=== PATIENT | female | born 1985 | race Caucasian/White ===

== ENCOUNTER 2016-07-28 12:25 | Emergency (ER) | payer SELFPAY ==
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
[2016-07-28 14:36] VITALS: BP 129/83
== END 2016-07-28 14:37 | disposition home or self-care (01) ==
LOC: ER 12:25
DX: S02.2XXA Fracture of nasal bones, initial encounter for closed fracture (principal); Y04.2XXA Assault by strike against or bumped into by another person, initial encounter; F17.200 Nicotine dependence, unspecified, uncomplicated
CPT/HCPCS: 70160; 99283

== ENCOUNTER 2016-11-26 22:45 | Emergency (ER) | payer SELFPAY ==
--- NOTE | 2016-11-27 00:21 | ER Document Report ---
HPI - HPI Patient complains to provider of: Painful walking Pain Level: 4 Context: Patient is a 31-year-old female that comes emergency department for chief complaint of right foot pain, she states that she stands 5-12 hours for her job and has painful walking on it now. She also states she has pain in her left hip with movement. She denies injuries to either. She has had this intermittently in the past. She states that she has had family members with similar problems and needed surgery for spurring/arthritis. She denies any daily medications. LMP within the past month. - DERM Skin Color: Normal, [place] Past Medical History - General Information source: Patient - Social History Smoking Status: Never Smoker Drug Abuse: None Lives with: Family Family History: None Pulmonary Medical History: Reports: Hx Asthma Renal/ Medical History: Denies: Hx Peritoneal Dialysis Psychiatric Medical History: Reports: Hx Depression Surgical Hx: Negative - Immunizations Immunizations up to date: Yes Hx Diphtheria, Pertussis, Tetanus Vaccination: Yes Vertical Provider Document - INFECTION CONTROL TRAVEL OUTSIDE OF THE [place].S. IN LAST 30 DAYS: No - HEENT HEENT: Atraumatic, Normocephalic - NECK Neck: Normal Inspection - RESPIRATORY Respiratory: Breath Sounds Normal, No Respiratory Distress O2 Sat by Pulse Oximetry: 99 - CARDIOVASCULAR Cardiovascular: Regular Rate, Regular Rhythm - GI/ABDOMEN Gastrointestinal: Abdomen Soft, Abdomen Non-Tender - MUSCULOSKELETAL/EXTREMETIES Musculoskeletal/Extremeties: Tender - Right foot examination is consistent with hallux valgus with tenderness over the first MTP joint, no significant erythema or swelling noted, normal lower extremity exam otherwise. I do not appreciate any particular pain or loss of range of motion with examination of the hip although patient reports pain on walking. Course - Re-evaluation Re-evalutation: X-ray showing hallux valgus with some soft tissue swelling, no other abnormalities, also shows mild hip arthritis. Patient given anti-inflammatory, muscle relaxer, copies of images and reports, will refer to podiatry, will provide with work-release. Discussed treatment plan in detail, discussed return precautions. Patient states understanding and agreement - Vital Signs Vital signs: Temp Pulse Resp BP Pulse Ox 98.1 F 70 18 142/94 H 99 11/26/16 23:10 11/26/16 23:10 11/26/16 23:10 11/26/16 23:10 07/25/17 23:10 - Diagnostic Test Radiology reviewed: Image reviewed, Reports reviewed Discharge - Discharge Clinical Impression: Right foot pain, Left hip pain Condition: Stable Disposition: HOME, SELF-CARE Additional Instructions: Examination and imaging show hallux valgus of the right foot (a bunion). Apply ice to the area, take the anti-inflammatory as directed, follow-up with podiatry referral for additional management. Imaging also shows mild arthritis in the hip. Take the anti-inflammatory and the muscle relaxer as prescribed. Return to emergency department for any concerning or worsening symptoms including severe swelling, redness, fever, or any other concerning symptoms. Prescriptions: Cyclobenzaprine HCl [Flexeril 5 mg Tablet] 1 - 2 tab PO TID PRN #15 tablet PRN Reason: Naproxen 500 mg PO BID #20 tablet Forms: Return to Work Referrals: SOLOMON ZAVALETA DPM [ACTIVE STAFF] - Follow up as needed
--- NOTE | 2016-11-27 02:20 | RADIOLOGY REPORT (SQ) ---
EXAM DESCRIPTION: FOOT RIGHT COMPLETE COMPLETED DATE/TIME: 11/27/2016 1:25 am REASON FOR STUDY: pain in foot, difficult to walk COMPARISON: None. NUMBER OF VIEWS: Three views. TECHNIQUE: AP, lateral and oblique radiographic images acquired of the right foot. LIMITATIONS: Nonweightbearing views. FINDINGS: MINERALIZATION: Normal. BONES: No acute fracture or dislocation. No worrisome bone lesions. Small Achilles tendinous enthes ophyte. JOINTS: No effusions. SOFT TISSUES: Mild soft tissue bunion. OTHER: No other significant finding. IMPRESSION: No acute findings. Mild soft tissue bunion swelling. TECHNICAL DOCUMENTATION: JOB ID: [id number] [employer]- All Rights Reserved
--- NOTE | 2016-11-27 02:21 | RADIOLOGY REPORT (SQ) ---
EXAM DESCRIPTION: HIP LEFT AP/LATERAL COMPLETED DATE/TIME: 11/27/2016 1:25 am REASON FOR STUDY: pain in hip, difficult to walk COMPARISON: None. NUMBER OF VIEWS: Two views. TECHNIQUE: AP pelvis and additional frog-leg view of the left hip. LIMITATIONS: None. FINDINGS: MINERALIZATION: Normal. LEFT HIP: No fracture or dislocation. No worrisome bone lesions. Mild osteoarthritis. RIGHT HIP: No fracture or dislocation. No worrisome bone lesions. Mild osteoarthritis. 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 PUBIS AND ISCHIUM: No fracture. PELVIS: No fracture. SACRUM: No fracture or dislocation. No worrisome bone lesions. LOWER LUMBAR SPINE: No fracture or dislocation. No worrisome bone lesions. No significant disc disea se. SOFT TISSUES: No findings. OTHER: No other significant finding. IMPRESSION: Mild osteoarthritis. NO RADIOGRAPHIC EVIDENCE OF ACUTE INJURY. TECHNICAL DOCUMENTATION: JOB ID: [id number] [employer]- All Rights Reserved
[2016-11-27 02:54] VITALS: BP 142/94
== END 2016-11-27 02:52 | disposition home or self-care (01) ==
LOC: ER 22:45
DX: M79.671 Pain in right foot (principal); M25.552 Pain in left hip
CPT/HCPCS: 99283

== ENCOUNTER 2017-10-03 05:34 | Emergency (ER) | payer SELFPAY ==
--- NOTE | 2017-10-03 06:22 | ER Document Report ---
ED Medical Screen (RME) - General Chief Complaint: Nausea/Vomiting/Diarrhea Stated Complaint: VOMITING/DIARREHA Time Seen by Provider: 10/03/17 06:22 Notes: Patient is a 32-year-old female who presents emergency department the chief complaint of nausea, vomiting 2 most recently with bright red emesis. She denies any coffee-ground emesis. She admits to intermittent cramping but denies any focal abdominal pain. She denies any previous history of symptoms like this previously. Patient does admit to history of GERD, PTSD and depression. TRAVEL OUTSIDE OF THE [place] IN LAST 30 DAYS: No - Related Data Allergies/Adverse Reactions: No Known Allergies Allergy (Verified 07/28/16 12:38) Past Medical History Pulmonary Medical History: Reports: Hx Asthma Renal/ Medical History: Denies: Hx Peritoneal Dialysis Psychiatric Medical History: Reports: Hx Depression - Immunizations Immunizations up to date: Yes Hx Diphtheria, Pertussis, Tetanus Vaccination: Yes Physical Exam - Vital signs Vitals: Temp Pulse Resp BP Pulse Ox 97.6 F 103 H 17 125/79 96 10/03/17 05:34 10/03/17 05:34 10/03/17 05:34 10/03/17 05:34 10/03/17 05:34 - Notes Notes: PHYSICAL EXAM GENERAL: Alert, interacts well. LUNGS: Clear to auscultation bilaterally, no wheezes, rales, or rhonchi. No respiratory distress. HEART: Regular rate and rhythm. No murmurs, gallops, or rubs. ABDOMEN: Soft, nondistended, nontender. No guarding, rebound, or rigidity.. Bowel sounds present in all 4 quadrants. EXTREMITIES: Moves all 4 extremities spontaneously. No edema, No cyanosis. NEUROLOGICAL: Alert and oriented x4. Normal speech. PSYCH: Normal affect, normal mood. SKIN: Warm, dry, normal turgor. No rashes or lesions noted. Course - Vital Signs Vital signs: Temp Pulse Resp BP Pulse Ox 97.6 F 103 H 17 125/79 96 10/03/17 05:34 10/03/17 05:34 10/03/17 05:34 10/03/17 05:34 10/03/17 05:34
[2017-10-03] MEDS ORDERED: ONDANSETRON HCL INJ/PF 4 MG/2 ML SDV IV ONE (06:32)
[2017-10-03] MEDS ORDERED: NORMAL SALINE 1000 ML 1,000 ML IV ONE (06:32)
[2017-10-03] MEDS ORDERED: PANTOPRAZOLE SODIUM 40 MG VIAL IV ONE (06:41)
[2017-10-03 06:53] LABS: ABSOLUTE BASOPHILS # (AUTO) 0.1 10^3/uL (0.0-0.2); ABSOLUTE EOSINOPHILS # (AUTO) 0.2 10^3/uL (0.0-0.6); ABSOLUTE LYMPHOCYTES (AUTO) 2.1 10^3/uL (0.5-4.7); ABSOLUTE MONOCYTES (AUTO) 0.4 10^3/uL (0.1-1.4); ABSOLUTE NEUT (AUTO) 5.5 10^3/uL (1.7-8.2); BASOPHILS % (AUTO) 0.9 % (0-2); EOSINOPHILS % (AUTO) 2.8 % (0-6); HEMATOCRIT 34.6 % (36.0-47.0); LYMPHOCYTES % (AUTO) 24.9 % (13-45); MEAN CORPUSCULAR HEMOGLOBIN 30.8 pg (27.0-33.4); MEAN CORPUSCULAR HGB CONC 34.8 g/dL (32.0-36.0); MEAN CORPUSCULAR VOLUME 89 fl (80-97); MONOCYTES % (AUTO) 5.3 % (3-13); PLATELET COUNT 262 10^3/uL (150-450); RED CELL DISTRIBUTION WIDTH 12.8 % (11.5-14.0); SEGMENTED NEUTROPHILS % (AUTO) 66.1 % (42-78); TOTAL CELLS COUNTED % (AUTO) 100 %; WHITE BLOOD COUNT 8.4 10^3/uL (4.0-10.5)
[2017-10-03 07:03] LABS: ALANINE AMINOTRANSFERASE 24 U/L (9-52); ALBUMIN 3.6 g/dL (3.5-5.0); ALKALINE PHOSPHATASE 36 U/L (38-126); ANION GAP 9 (5-19); ASPARTATE AMINO TRANSFERASE 17 U/L (14-36); BILIRUBIN,DIRECT 0.3 mg/dL (0.0-0.4); BILIRUBIN,TOTAL 0.5 mg/dL (0.2-1.3); BLOOD UREA NITROGEN 24 mg/dL (7-20); CALCIUM 8.7 mg/dL (8.4-10.2); CARBON DIOXIDE 24 mmol/L (22-30); CHLORIDE 110 mmol/L (98-107); GLUCOSE 126 mg/dL (75-110); LIPASE 65.9 U/L (23-300); POTASSIUM 4.4 mmol/L (3.6-5.0); TOTAL PROTEIN 6.2 g/dL (6.3-8.2)
--- NOTE | 2017-10-03 07:37 | ER Document Report ---
ED General - General Chief Complaint: Nausea/Vomiting/Diarrhea Stated Complaint: VOMITING/DIARREHA Time Seen by Provider: 10/03/17 06:22 Mode of Arrival: Ambulatory Information source: Patient Notes: Patient presents to the emergency department with reports of throwing up blood and bloody diarrhea. Patient reports that she took a Celexa last night for anxiety. She reports she normally takes this, hasn't in a few days and this pill looked a little funny. She woke up at approximately 0230 felt a little bit nauseated and vomited 1. She went back to bed at 0515 she woke up went to the bathroom vomited again and had one diarrhea stool. She noted blood in stool and emesis. She reports she had abdominal pain and nausea at that time but she is no longer having any pain. She reports she is not nauseated in fact she is hungry. Reports this never happened to her before. Reports history of GERD bipolar anxiety and PTSD. Also reports past medical history of drug abuse. Reports no cocaine since May. Drinks ETOH occasionally. Denies history of GI bleed. Reports she was eating/drinking as normal yesterday. TRAVEL OUTSIDE OF THE [place] IN LAST 30 DAYS: No - HPI Onset: Just prior to arrival Onset/Duration: Sudden Quality of pain: No pain Associated symptoms: Diarrhea, Nausea, Vomiting Exacerbated by: Denies Relieved by: Denies Similar symptoms previously: No Recently seen / treated by doctor: No - Related Data Allergies/Adverse Reactions: No Known Allergies Allergy (Verified 07/28/16 12:38) Past Medical History - General Information source: Patient Last Menstrual Period: Implant left arm, lmp 4 years ago - Social History Smoking Status: Current Every Day Smoker Chew tobacco use (# tins/day): No Frequency of alcohol use: Social Drug Abuse: None - reports [facility]h drug abuse Occupation: [employer] Family History: Reviewed & Not Pertinent - denies hx of cancers Patient has suicidal ideation: No Patient has homicidal ideation: No Pulmonary Medical History: Reports: Hx Asthma Renal/ Medical History: Denies: Hx Peritoneal Dialysis GI Medical History: Reports: Hx Gastroesophageal Reflux Disease Psychiatric Medical History: Reports: Hx Anxiety, Hx Bipolar Disorder, Hx Depression, Hx Post Traumatic Stress Disorder Past Surgical History: Reports: Hx Oral Surgery - Immunizations Immunizations up to date: Yes Hx Diphtheria, Pertussis, Tetanus Vaccination: Yes Review of Systems - Review of Systems Notes: Review HPI for review of systems., All other systems negative Physical Exam - Vital signs Vitals: Temp Pulse Resp BP Pulse Ox 97.6 F 103 H 17 125/79 96 10/03/17 05:34 10/03/17 05:34 10/03/17 05:34 10/03/17 05:34 10/03/17 05:34 - Notes Notes: PHYSICAL EXAMINATION: GENERAL: Well-appearing and in no acute distress, nontoxic looking HEAD: Atraumatic, normocephalic. EYES: Pupils equal round and reactive to light, extraocular movements intact, sclera anicteric, conjunctiva are normal. ENT: nares patent, oropharynx clear without exudates. Moist mucous membranes. NECK: Normal range of motion, supple without lymphadenopathy LUNGS: CTAB and equal. No wheezes rales or rhonchi. HEART: Regular rate and rhythm without murmurs ABDOMEN: Soft, no tenderness. No guarding, no rebound EXTREMITIES: Normal range of motion, no pitting edema. No cyanosis. NEUROLOGICAL: Cranial nerves grossly intact. Normal sensory/motor exams. PSYCH: Normal mood, normal affect. SKIN: Warm, Dry, normal turgor, no rashes or lesions noted Course - Re-evaluation Re-evalutation: 10/03/17 09:24 Will monitor patient to ascertain if her nausea /vomiting returns after 3 hours. Labs unremarkable gastric and Hemoccult positive but hemacult was taken from a specimen in the garbage can that patient had brought in from home. 10/03/17 10:44 No further episodes of vomiting or diarrhea. Patient denies abdominal pain. Patient reports she feels great she is just hungry now. Patient was instructed on the importance of follow-up with GI for full evaluation. Was also instructed to avoid things that will irritate her stomach such as aspirin pizza alcohol tobacco. Patient verbalized understanding to all instructions ready to go home. - Vital Signs Vital signs: Temp Pulse Resp BP Pulse Ox 98.6 F 103 H 18 122/73 97 10/03/17 09:27 10/03/17 05:34 10/03/17 06:25 10/03/17 10:01 10/03/17 10:01 - Laboratory Result Diagrams: 10/03/17 06:37 10/03/17 06:37 Laboratory results interpreted by me: 06/01/18 06/01/18 06/01/18 06:37 06:37 07:41 Hct 34.6 L Chloride 110 H BUN 24 H Glucose 126 H Alkaline Phosphatase 36 L Total Protein 6.2 L Ur Leukocyte Esterase SMALL H Discharge - Discharge Clinical Impression: Rectal bleed Nausea & vomiting Qualifiers: Vomiting type: unspecified Vomiting Intractability: unspecified Qualified Code( s): R11.2 - Nausea with vomiting, unspecified Condition: Stable Disposition: HOME, SELF-CARE Instructions: [facility], Gastroenterology, Rectal Bleeding, Unclear Cause ([facility]), Upper Gastrointestinal Bleeding ([facility]), Vomiting ([facility]) Additional Instructions: *You have been evaluated for vomiting and diarrhea *clear liquids, advance as tolerated, avoid aspirin alcohol cigarettes *Follow up with a primary care provider within 5 days or follow up with the [facility] * follow up gastroenterology for evalution- see referral names listed. *Return to ED for worsening condition, changes, needs, concerns *Return to ED if not better in 24 hours Forms: Smoking Cessation Education, Return to Work Referrals: NIR VANCE MD [ACTIVE STAFF] - ALANIS STEWARD MD [ACTIVE STAFF] -
[2017-10-03 08:21] LABS: APPEARANCE,URINE SLIGHTLY-CLOUDY; BILIRUBIN,URINE NEGATIVE (NEGATIVE); COLOR,URINE YELLOW; GLUCOSE, URINE NEGATIVE (NEGATIVE); KETONES,URINE NEGATIVE (NEGATIVE); LEUKOCYTE ESTERASE,URINE SMALL (NEGATIVE); NITRITE,URINE NEGATIVE (NEGATIVE); PROTEIN,URINE NEGATIVE (NEGATIVE); URINE SPECIFIC GRAVITY 1.024; UROBILINOGEN,URINE NEGATIVE mg/dL (<2.0)
[2017-10-03 10:39] VITALS: BP 122/73
== END 2017-10-03 10:58 | disposition home or self-care (01) ==
LOC: ER 05:34
DX: K62.5 Hemorrhage of anus and rectum (principal); K92.0 Hematemesis; R19.7 Diarrhea, unspecified; R10.9 Unspecified abdominal pain; F17.200 Nicotine dependence, unspecified, uncomplicated
CPT/HCPCS: 99284; 96361; 96374; 96375; 86900; 86901; 36415; 86850; 83690; 85025; 82271; 82272; 81025; 80053; 81001; S0164; J2405; J7030

== ENCOUNTER 2017-10-05 18:47 | Emergency (ER) | payer SELFPAY ==
[2017-10-05 18:56] VITALS: BP 122/82
--- NOTE | 2017-10-05 19:02 | ER Document Report ---
ED Medical Screen (RME) - General Chief Complaint: Nausea/Vomiting/Diarrhea Stated Complaint: VOMITING BLOOD Time Seen by Provider: 10/05/17 18:58 Mode of Arrival: Ambulatory Information source: Patient Notes: 32-year-old female presents with complaints of continued vomiting blood. Patient notes she is passed out twice was seen here 2 days prior with similar complaints admits to coffee ground emesis with dark stools Friday and Friday I have greeted and performed a rapid initial assessment of this patient. A comprehensive ED assessment and evaluation of the patient, analysis of test results and completion of the medical decision making process will be conducted by additional ED providers. PHYSICAL EXAMINATION: GENERAL: Well-appearing, well-nourished and in no acute distress. HEAD: Atraumatic, normocephalic. EYES: Pupils equal round extraocular movements intact, conjunctiva are normal. ENT: Nares patent NECK: Normal range of motion LUNGS: No respiratory distress Musculoskeletal: Normal range of motion NEUROLOGICAL: Normal speech, normal gait. PSYCH: Normal mood, normal affect. SKIN: Warm, Dry, normal turgor, no rashes or lesions noted. TRAVEL OUTSIDE OF THE [place] IN LAST 30 DAYS: No - Related Data Allergies/Adverse Reactions: No Known Allergies Allergy (Verified 10/05/17 18:48) Past Medical History - Social History Chew tobacco use (# tins/day): No Frequency of alcohol use: Social Drug Abuse: None Pulmonary Medical History: Reports: Hx Asthma Renal/ Medical History: Denies: Hx Peritoneal Dialysis GI Medical History: Reports: Hx Gastroesophageal Reflux Disease Psychiatric Medical History: Reports: Hx Anxiety, Hx Bipolar Disorder, Hx Depression, Hx Post Traumatic Stress Disorder Past Surgical History: Reports: Hx Oral Surgery - Immunizations Immunizations up to date: Yes Hx Diphtheria, Pertussis, Tetanus Vaccination: Yes Physical Exam - Vital signs Vitals: Temp Pulse Resp BP Pulse Ox 98.0 F 99 16 122/82 99 10/05/17 18:55 10/05/17 18:55 10/05/17 18:55 10/05/17 18:55 10/05/17 18:55 Course - Vital Signs Vital signs: Temp Pulse Resp BP Pulse Ox 98.0 F 99 16 122/82 99 10/05/17 18:55 10/05/17 18:55 10/05/17 18:55 10/05/17 18:55 10/05/17 18:55
[2017-10-05] MEDS ORDERED: METOCLOPRAMIDE HCL INJ/PF 10 MG/2 ML SDV IV ONE (19:06)
[2017-10-05] MEDS ORDERED: FAMOTIDINE 20 MG TABLET PO ONE (19:30)
[2017-10-05] MEDS ORDERED: RINGERS SOLUTION,LACTATED 1,000 ML IV ONE (19:30)
[2017-10-05] MEDS ORDERED: ONDANSETRON HCL INJ/PF 4 MG/2 ML SDV IV ONE (19:30)
[2017-10-05] MEDS ORDERED: LIDOCAINE 2% VISCOUS SOLN 20 ML UDCUP PO ONE (19:30)
[2017-10-05] MEDS ORDERED: MAG HYDROX/AL HYDROX/SIMETH SUSP 30 ML UDCUP PO ONE (19:30)
[2017-10-05] MEDS ORDERED: METOCLOPRAMIDE HCL ORAL SOLN 10 MG/10 ML UDCUP PO ONE (19:30)
[2017-10-05 19:35] LABS: ABSOLUTE EOSINOPHILS # (AUTO) 0.2 10^3/uL (0.0-0.6); ABSOLUTE LYMPHOCYTES (AUTO) 3.6 10^3/uL (0.5-4.7); ABSOLUTE MONOCYTES (AUTO) 0.6 10^3/uL (0.1-1.4); ABSOLUTE NEUT (AUTO) 8.2 10^3/uL (1.7-8.2); BASOPHILS % (AUTO) 0.2 % (0-2); EOSINOPHILS % (AUTO) 1.3 % (0-6); HEMATOCRIT 28.6 % (36.0-47.0); LYMPHOCYTES % (AUTO) 28.4 % (13-45); MEAN CORPUSCULAR HEMOGLOBIN 30.6 pg (27.0-33.4); MEAN CORPUSCULAR HGB CONC 34.6 g/dL (32.0-36.0); MEAN CORPUSCULAR VOLUME 89 fl (80-97); PLATELET COUNT 292 10^3/uL (150-450); RED BLOOD COUNT 3.23 10^6/uL (3.72-5.28); RED CELL DISTRIBUTION WIDTH 12.8 % (11.5-14.0); SEGMENTED NEUTROPHILS % (AUTO) 65.1 % (42-78); TOTAL CELLS COUNTED % (AUTO) 100 %; WHITE BLOOD COUNT 12.6 10^3/uL (4.0-10.5)
[2017-10-05 19:46] LABS: HEMOGLOBIN 9.9 g/dL (12.0-15.5)
[2017-10-05 19:49] LABS: APPEARANCE,URINE CLOUDY; BILIRUBIN,URINE NEGATIVE (NEGATIVE); GLUCOSE, URINE NEGATIVE (NEGATIVE); KETONES,URINE NEGATIVE (NEGATIVE); LEUKOCYTE ESTERASE,URINE LARGE (NEGATIVE); NITRITE,URINE NEGATIVE (NEGATIVE); PROTEIN,URINE 30 mg/dL (NEGATIVE); URINE SPECIFIC GRAVITY 1.026
--- NOTE | 2017-10-05 19:49 | ER Document Report ---
ED General - General Chief Complaint: Nausea/Vomiting/Diarrhea Stated Complaint: VOMITING BLOOD Time Seen by Provider: 10/05/17 18:58 Mode of Arrival: Ambulatory Notes: The patient is a 32-year-old female without chronic medical problems, intermittent aspirin use, every day tobacco smoker, occasional alcohol use who presents with ongoing coffee-ground emesis and dark stools. The patient was seen 2 days ago for the same, at that time had stool and vomitus positive for blood. She was monitored in the emergency department and subsequently discharged home and told to follow-up with GI. The patient however reports that she continues to have vomiting with coffee-ground emesis as well as dark stools. She denies any focal abdominal pain. Nothing improves or worsens her symptoms. She denies any history of similar symptoms in the past. She denies any ongoing aspirin or NSAID use although does continue to smoke. No medications were initiated at time of discharge from her prior visit. She has been unable to see a GI doctor due to lack of insurance and the weekend schedule. TRAVEL OUTSIDE OF THE [place] IN LAST 30 DAYS: No - Related Data Allergies/Adverse Reactions: No Known Allergies Allergy (Verified 10/05/17 18:48) Past Medical History - General Information source: Patient - Social History Smoking Status: Current Every Day Smoker Chew tobacco use (# tins/day): No Frequency of alcohol use: Social Drug Abuse: None Lives with: Family Family History: Reviewed & Not Pertinent - denies hx of cancers Patient has suicidal ideation: No Patient has homicidal ideation: No Pulmonary Medical History: Reports: Hx Asthma Renal/ Medical History: Denies: Hx Peritoneal Dialysis GI Medical History: Reports: Hx Gastroesophageal Reflux Disease Psychiatric Medical History: Reports: Hx Anxiety, Hx Bipolar Disorder, Hx Depression, Hx Post Traumatic Stress Disorder Past Surgical History: Reports: Hx Oral Surgery - Immunizations Immunizations up to date: Yes Hx Diphtheria, Pertussis, Tetanus Vaccination: Yes Review of Systems - Review of Systems Notes: Constitutional: Negative for fever. HENT: Negative for sore throat. Eyes: Negative for visual changes. Cardiovascular: Negative for chest pain. Respiratory: Negative for shortness of breath. Gastrointestinal: Negative for abdominal pain, positive for coffee-ground emesis and melena Genitourinary: Negative for dysuria. Musculoskeletal: Negative for back pain. Skin: Negative for rash. Neurological: Negative for headaches, weakness or numbness. 10 point ROS negative except as marked above and in HPI. Physical Exam - Vital signs Vitals: Temp Pulse Resp BP Pulse Ox 98.0 F 99 16 122/82 99 10/05/17 18:55 10/05/17 18:55 10/05/17 18:55 10/05/17 18:55 10/05/17 18:55 Interpretation: Normal Notes: PHYSICAL EXAMINATION: GENERAL: Well-appearing, well-nourished and in no acute distress. HEAD: Atraumatic, normocephalic. EYES: Pupils equal round and reactive to light, extraocular movements intact, sclera anicteric, conjunctiva are normal. ENT: nares patent, oropharynx clear without exudates. Moderately dry mucous membranes. NECK: Normal range of motion, supple without lymphadenopathy LUNGS: Breath sounds clear to auscultation bilaterally and equal. No wheezes rales or rhonchi. HEART: Regular rate and rhythm without murmurs ABDOMEN: Soft, nontender, normoactive bowel sounds. No guarding, no rebound. No masses appreciated. EXTREMITIES: Normal range of motion, no pitting or edema. No cyanosis. NEUROLOGICAL: No focal neurological deficits. Moves all extremities spontaneously and on command. PSYCH: Normal mood, normal affect. SKIN: Warm, Dry, normal turgor, no rashes or lesions noted. Course - Re-evaluation Re-evalutation: 10/05/17 19:47 Patient presents with ongoing vomiting and nausea with some amounts of coffee- ground emesis in her vomitus. The patient was seen several days ago for the same, hemoglobin within acceptable limits at that time point although notably no medications were started at that time. On initial examination the patient is well-appearing, in no distress, has no focal abdominal tenderness, rebound or guarding. She is tolerating oral intake at the time of my initial assessment without difficulty. Vitals within acceptable limits without tachycardia or hypotension. Will proceed with repeat CBC 10/05/17 20:16 Repeat CBC does unfortunately show the patient has had a significant amount of blood loss from a hemoglobin of 12 down to 9.9. She remains hemodynamically within acceptable limits however at this time point she will require transfer for a urgent endoscopy. I have contacted [facility] for transfer and I am awaiting callback. 10/05/17 20:31 I have discussed this case with Dr. Shahzad Arora who has accepted the patient for transfer. Patient remains minimally within normal limits. A pantoprazole infusion has been initiated after an initial bolus. 2300-patient remains hemodynamically stable and appropriate for transport. - Vital Signs Vital signs: Temp Pulse Resp BP Pulse Ox 98.0 F 99 16 122/82 99 10/05/17 18:55 10/05/17 18:55 10/05/17 18:55 10/05/17 18:55 10/05/17 18:55 - Laboratory Result Diagrams: 10/05/17 19:15 10/05/17 19:15 Laboratory results interpreted by me: 10/05/17 10/05/17 10/05/17 19:15 19:15 19:15 WBC 12.6 H RBC 3.23 L Hgb 9.9 L D Hct 28.6 L BUN 21 H AST 13 L Urine Protein 30 H Urine Urobilinogen 2.0 H Ur Leukocyte Esterase LARGE H Urine Ascorbic Acid 20 H Discharge - Discharge Clinical Impression: Upper GI bleed, Coffee ground emesis, Blood loss anemia Condition: Fair Disposition: [facility]
[2017-10-05 19:50] LABS: COLOR,URINE DARK YELLOW
[2017-10-05 20:14] LABS: ALANINE AMINOTRANSFERASE 25 U/L (9-52); ALBUMIN 3.8 g/dL (3.5-5.0); ALKALINE PHOSPHATASE 39 U/L (38-126); ANION GAP 8 (5-19); ASPARTATE AMINO TRANSFERASE 13 U/L (14-36); BILIRUBIN,DIRECT 0.3 mg/dL (0.0-0.4); BILIRUBIN,TOTAL 0.3 mg/dL (0.2-1.3); BLOOD UREA NITROGEN 21 mg/dL (7-20); CALCIUM 9.1 mg/dL (8.4-10.2); CARBON DIOXIDE 27 mmol/L (22-30); CHLORIDE 105 mmol/L (98-107); GLUCOSE 106 mg/dL (75-110); LIPASE 74.4 U/L (23-300); POTASSIUM 4.2 mmol/L (3.6-5.0); SODIUM 139.9 mmol/L (137-145); TOTAL PROTEIN 6.4 g/dL (6.3-8.2)
[2017-10-05] MEDS ORDERED: PANTOPRAZOLE SODIUM 40 MG VIAL IV PRN (20:16)
[2017-10-05] MEDS ORDERED: PANTOPRAZOLE SODIUM 40 MG VIAL IV ONE (20:16)
== END 2017-10-05 22:50 | disposition short-term general hospital (02) ==
LOC: ER 18:47
DX: K92.2 Gastrointestinal hemorrhage, unspecified (principal); R11.10 Vomiting, unspecified; D50.0 Iron deficiency anemia secondary to blood loss (chronic); R19.7 Diarrhea, unspecified; F17.200 Nicotine dependence, unspecified, uncomplicated
CPT/HCPCS: 99285; 96361; 96375; 96365; 96366; 86900; 86901; 36415; 86850; 83690; 85025; 81025; 80053; 81001; J3490; S0164; J2405; J7120

== ENCOUNTER 2017-11-05 15:46 | Emergency (ER) | payer SELFPAY ==
[2017-11-05 16:03] VITALS: BP 110/63
[2017-11-05] MEDS ORDERED: ACETAMINOPHEN 325 MG TABLET PO ONE (17:07)
[2017-11-05] MEDS ORDERED: FAMOTIDINE 20 MG TABLET PO ONE (17:07)
--- NOTE | 2017-11-05 17:12 | ER Document Report ---
ED Skin Rash/Insect Bite/Abscs - General Chief Complaint: Insect Bite Stated Complaint: POSSIBLE BED BUGS Time Seen by Provider: 11/05/17 17:00 Mode of Arrival: Ambulatory Information source: Patient Notes: 32-year-old female presented ED for complaint of bug bites to the right arm. She states that she has bedbugs. She states she is talked to her landlord several times and he will not take care of the problem. States that she thought she had under control she threw away most of her furniture and all she had is left with a mattress. She slept in her mattress last night and then she had numerous new bites this morning. TRAVEL OUTSIDE OF THE [place] IN LAST 30 DAYS: No - HPI Patient complains to provider of: Insect sting Onset: Other - several weeks worse this am Onset/Duration: Persistent Quality of pain: Burning Severity: Moderate Pain Level: 3 Skin Character: Macules, Papules, Other - Insect bites to the right arm Quality of rash: Itchy, Painful Identify cause: Yes - Bedbugs she states she seen the bugs Exacerbated by: Other - Sleeping in her house Relieved by: Denies Similar symptoms previously: Yes Recently seen / treated by doctor: No - Related Data Allergies/Adverse Reactions: No Known Allergies Allergy (Verified 11/05/17 15:49) Past Medical History - General Information source: Patient - Social History Smoking Status: Never Smoker Cigarette use (# per day): No Chew tobacco use (# tins/day): No Smoking Education Provided: No Frequency of alcohol use: None Drug Abuse: None Lives with: Family Family History: Reviewed & Not Pertinent - denies hx of cancers Patient has suicidal ideation: No Patient has homicidal ideation: No - Past Medical History Cardiac Medical History: Reports: None Pulmonary Medical History: Reports: Hx Asthma EENT Medical History: Reports: None Neurological Medical History: Reports: None Endocrine Medical History: Reports: None Renal/ Medical History: Reports: None Malignancy Medical History: Reports: None GI Medical History: Reports: Hx Gastroesophageal Reflux Disease, Hx Ulcer Musculoskeltal Medical History: Reports Hx Musculoskeletal Trauma Skin Medical History: Reports None Psychiatric Medical History: Reports: Hx Anxiety, Hx Bipolar Disorder, Hx Depression, Hx Post Traumatic Stress Disorder Traumatic Medical History: Reports: None Infectious Medical History: Reports: None Past Surgical History: Reports: Hx Oral Surgery - [place] teeth, Other - Moles removed - Immunizations Immunizations up to date: Yes Hx Diphtheria, Pertussis, Tetanus Vaccination: Yes Review of Systems - Review of Systems Constitutional: No symptoms reported EENT: No symptoms reported Cardiovascular: No symptoms reported Respiratory: No symptoms reported Gastrointestinal: No symptoms reported Genitourinary: No symptoms reported Female Genitourinary: No symptoms reported Musculoskeletal: No symptoms reported Skin: Other - Multiple bedbug bites to her left arm. She states she actually woke up with a bed bug crawling on her arm this morning Hematologic/Lymphatic: No symptoms reported Neurological/Psychological: No symptoms reported -: Yes All other systems reviewed and negative Physical Exam - Vital signs Vitals: Temp Pulse Resp BP Pulse Ox 97.6 F 88 16 110/63 100 11/05/17 16:02 11/05/17 16:02 11/05/17 16:02 11/05/17 16:02 11/05/17 16:02 Interpretation: Normal - General General appearance: Appears well, Alert - HEENT Head: Normocephalic, Atraumatic Eyes: Normal Pupils: PERRL - Respiratory Respiratory status: No respiratory distress Chest status: Nontender Breath sounds: Normal Chest palpation: Normal - Cardiovascular Rhythm: Regular Heart sounds: Normal auscultation Murmur: No - Abdominal Inspection: Normal Distension: No distension Bowel sounds: Normal Tenderness: Nontender Organomegaly: No organomegaly - Back Back: Normal, Nontender - Extremities General upper extremity: Nontender, Normal color, Normal ROM, Normal temperature. No: Normal inspection - Multiple probable bug bites to the right arm. There are multiple insect bites. No signs of infection, there is some mild swelling and erythema from the bites General lower extremity: Normal inspection, Nontender, Normal color, Normal ROM , Normal temperature, Normal weight bearing. No: Jessica's sign - Neurological Neuro grossly intact: Yes Cognition: Normal Orientation: AAOx4 [place] Coma Scale Eye Opening: Spontaneous Kelly Coma Scale Verbal: Oriented Kelly Coma Scale Motor: Obeys Commands [place] Coma Scale Total: 15 Speech: Normal Motor strength normal: LUE, RUE, LLE, RLE Sensory: Normal - Psychological Associated symptoms: Normal affect, Normal mood - Skin Skin Temperature: Warm Skin Moisture: Dry Skin Color: Normal Location of irregularity: Extremities - Multiple insect bites to the left arm Course - Re-evaluation Re-evalutation: 11/05/17 18:23 Patient was treated with ibuprofen and Pepcid for her insect bites. She was instructed on use of Benadryl for the itching as well as calamine lotion Caladryl. Patient instructed to follow-up with a primary doctor or muffle operator for her insect bites. Patient was instructed to please find ways to rid her house of the bedbugs. Patient verbalized understanding of instructions. - Vital Signs Vital signs: Temp Pulse Resp BP Pulse Ox 97.6 F 88 16 110/63 100 11/05/17 16:02 11/05/17 16:02 11/05/17 16:02 11/05/17 16:02 11/05/17 16:02 Discharge - Discharge Clinical Impression: Insect bite Qualifiers: Encounter type: initial encounter Qualified Code(s): W57.XXXA - Bitten or stung by nonvenomous insect and other nonvenomous arthropods, initial encounter Condition: Stable Disposition: HOME, SELF-CARE Instructions: Family Physicians / Practices, Use of Xsbk-Ayr-Crugvsr Ibuprofen ([facility]) Additional Instructions: Insect Bites You have been bitten by an insect. These bites can cause two types of swelling: an initial swelling due to insect saliva or injected poison, and a late reaction due to your body's allergic reaction. This initial local reaction may be uncomfortable but is not dangerous. Often there's an itchy "hive" at the bite location. This is treated with antihistamines, cold compresses, and resting the affected body part. The later reaction often develops about the second day. The entire area becomes very swollen, red, itchy, and tender. This is an allergic reaction. Your body is attacking the leftover insect saliva or venom. This type of allergy is unpleasant, but not dangerous. We treat this swelling with cortisone -type medicine. Sometimes we use antibiotics if we're worried about infection. Antihistamines help with the itch. If you develop a fever, chills, a red streak, or swollen glands in the area of the bite, infection may be starting. Return at once. ACID-SUPPRESSING MEDICATION: You have a prescription for medicine which reduces the stomach's secretion of acid. Examples include Zantac, Tagament, and Pepcid. These drugs are often used to allow healing of ulcers or esophagitis. They may be needed to prevent recurrence of ulcers in some patients, or to prevent damage from acid reflux in the esophagus. Take all medication as prescribed, even after the pain is gone. Regular antacids may be added as needed if you have symptoms while taking this medicine. These medications sometimes are prescribed for allergic reactions because they have anti-histaminic effects and relieve the rash and itching of the reaction. There are usually no side effects from this medication. But, in rare cases and particularly in the elderly, serious problems can occur. Contact your doctor if there is fever, rash, hallucinations, confusion, or unusual bruising. Contact your doctor at once if you develop lightheadedness, black or bloody stool, or bloody vomitus. ANTIHISTAMINES: An antihistamine has been given and/or prescribed to control your symptoms. Antihistamines are used for many reasons, including itching, watering eyes, runny nose, allergic swelling, hives, and insect stings. Antihistamines may cause drowsiness, especially with the first dose. Do not operate machinery or drive while under the effects of the medication. Other common side effects include dry mouth and eyes. In older persons, antihistamines can occasionally cause urinary retention, constipation, and trouble focusing the eyes. Do not combine the medication with alcohol, or with any other medication without talking to your doctor. USE OF DIPHENHYDRAMINE: The use of diphenhydramine (Benadryl) has been recommended to control allergic symptoms. The 25 mg strength is available over- the-counter, as well as the elixir. This antihistamine is used for many symptoms. It's useful for itching, watering eyes and nose, allergic swelling, hives, and insect stings. The medication can be repeated four times daily. Age Elixir (12.5 mg/tsp) 25 mg pill 2-3 yr 1/2 tsp 4-8 yr 1 tsp 9-14 yr 2 tsp one tab adult 1-2 tabs Antihistamines may cause drowsiness, especially with the first dose. Do not operate machinery or drive while under the effects of the medication. Do not combine the medication with alcohol, or with any other medication without talking to your doctor. FOLLOW-UP CARE: If you have been referred to a physician for follow-up care, call the physician s office for an appointment as you were instructed or within the next two days. If you experience worsening or a significant change in your symptoms, notify the physician immediately or return to the Emergency Department at any time for re-evaluation. Forms: Return to Work
== END 2017-11-05 17:20 | disposition home or self-care (01) ==
LOC: ER 15:46
DX: S40.869A Insect bite (nonvenomous) of unspecified upper arm, initial encounter (principal); W57.XXXA Bitten or stung by nonvenomous insect and other nonvenomous arthropods, initial encounter; Y92.009 Unspecified place in unspecified non-institutional (private) residence as the place of occurrence of the external cause
CPT/HCPCS: 99281

== ENCOUNTER 2018-03-14 12:44 | Emergency (ER) | payer MEDICAID ==
[2018-03-14 12:52] VITALS: BP 135/82
[2018-03-14] MEDS ORDERED: ACETAMINOPHEN 325 MG TABLET PO ONE (13:16)
[2018-03-14] MEDS ORDERED: CYCLOBENZAPRINE HCL 10 MG TABLET PO ONE (13:16)
--- NOTE | 2018-03-14 13:22 | ER Document Report ---
HPI - HPI Patient complains to provider of: Right back and neck pain Pain Level: 4 Context: Patient is a 32-year-old female presenting to the emergency department complaining of her right back and neck pain. Patient states she does have scoliosis and has seen a chiropractor in the past which has helped with this pain. States she is unfortunately without insurance at this time follow-up with a primary care provider or a chiropractor. States she has taken Tylenol [id number] but states she did not take any today. States she recently suffered from bleeding ulcers so she cannot have Motrin. Patient denies any fall or injury to the area. Patient denies any numbness or tingling in any extremity. Patient also denies bowel or bladder incontinence, or urinary retention. Past medical history: Scoliosis, peptic ulcer disease Medications: None Allergies: None Past Medical History - General Information source: Patient - Social History Smoking Status: Unknown if Ever Smoked Lives with: Family Family History: Reviewed & Not Pertinent - denies hx of cancers Pulmonary Medical History: Reports: Hx Asthma Renal/ Medical History: Denies: Hx Peritoneal Dialysis GI Medical History: Reports: Hx Gastroesophageal Reflux Disease, Hx Ulcer Musculoskeletal Medical History: Reports Hx Musculoskeletal Trauma Psychiatric Medical History: Reports: Hx Anxiety, Hx Bipolar Disorder, Hx Depression, Hx Post Traumatic Stress Disorder Past Surgical History: Reports: Hx Oral Surgery - [place] teeth, Other - Moles removed - Immunizations Immunizations up to date: Yes Hx Diphtheria, Pertussis, Tetanus Vaccination: Yes Vertical Provider Document - CONSTITUTIONAL Agree With Documented VS: Yes Notes: GENERAL: Alert, interacts well. No acute distress. HEAD: Normocephalic, atraumatic. EYES: Pupils equal, round, and reactive to light. Extraocular movements intact. ENT: Oral mucosa moist, tongue midline. NECK: Full range of motion. Supple. Trachea midline. No nuchal rigidity LUNGS: Clear to auscultation bilaterally, no wheezes, rales, or rhonchi. No respiratory distress. HEART: Regular rate and rhythm. No murmur ABDOMEN: Soft, non-tender. Non-distended. Bowel sounds present in all 4 quadrants. EXTREMITIES: Moves all 4 extremities spontaneously. No edema, normal radial and dorsalis pedis pulses bilaterally. No cyanosis. 5 out of 5 strength all 4 extremities. BACK: no cervical, thoracic, lumbar midline tenderness. No saddle anesthesia, normal distal neurovascular exam. Pain upon palpation right paraspinal muscles into the trapezius. NEUROLOGICAL: Alert and oriented x3. Normal speech. cranial nerves II through XII grossly intact. PSYCH: Normal affect, normal mood. SKIN: Warm, dry, normal turgor. No rashes or lesions noted. - INFECTION CONTROL TRAVEL OUTSIDE OF THE [place] IN LAST 30 DAYS: No Course - Re-evaluation Re-evalutation: 03/14/18 13:19 Discussed treatment with Flexeril and Tylenol in the emergency room. Patient states she has used Flexeril for this pain in the past and that always helps. Discussed need to follow-up with primary care provider, [facility] information will be given in her discharge paperwork. - Vital Signs Vital signs: Temp Pulse Resp BP Pulse Ox 98.5 F 74 18 135/82 H 98 03/14/18 12:51 03/14/18 12:51 03/14/18 12:51 03/14/18 12:51 03/14/18 12:51 Discharge - Discharge Clinical Impression: Neck pain Condition: Stable Disposition: HOME, SELF-CARE Instructions: Muscle Strain ([facility]), Warm Packs ([facility]) Additional Instructions: As we discussed you have been seen and treated in the emergency room for a muscle strain. You should take medications as prescribed. Heat will also help relieve some of the muscle tightness. A phone number and address for a medical clinic if you do not have insurance will be provided in this packet. Please follow-up with them in the next 24-48 hours. Please return to the emergency room for any other concerning symptoms. Prescriptions: Cyclobenzaprine HCl [Flexeril 10 mg Tablet] 10 mg PO TIDP PRN #15 tab PRN Reason: Referrals: [facility] [Provider Group] - Follow up as needed
== END 2018-03-14 13:35 | disposition home or self-care (01) ==
LOC: ER 12:44
DX: M54.2 Cervicalgia (principal); M54.9 Dorsalgia, unspecified
CPT/HCPCS: 99283; J3490 ×2

== ENCOUNTER → 2018-06-30 | Outpatient (CLI) | payer MEDICAID | LOC: OD 17:01 | PROVIDERS: ATTEND Otolaryngology | DX: J30.9 Allergic rhinitis, unspecified (principal) | CPT/HCPCS: 36415; 82785; 86003 ==

== ENCOUNTER 2018-07-15 22:34 | Emergency (ER) | payer MEDICAID ==
--- NOTE | 2018-07-15 22:43 | ER Document Report ---
ED Medical Screen (RME) - General Chief Complaint: Arm Pain Stated Complaint: CONTROL ISSUE Time Seen by Provider: 07/15/18 22:40 Primary Care Provider: NILAY MARIE DO [Primary Care Provider] - Follow up as needed Mode of Arrival: Ambulatory Notes: patient c/o she had nexplanon inserted at 1530 today, now the area is sore and bruised. no obvious swelling, no bleeding I have greeted and performed a rapid initial assessment of this patient. A comprehensive ED assessment and evaluation of the patient, analysis of test results and completion of the medical decision making process will be conducted by additional ED providers. TRAVEL OUTSIDE OF THE [place] IN LAST 30 DAYS: No - Related Data Allergies/Adverse Reactions: No Known Allergies Allergy (Verified 03/14/18 12:44) Past Medical History Pulmonary Medical History: Reports: Hx Asthma Renal/ Medical History: Denies: Hx Peritoneal Dialysis GI Medical History: Reports: Hx Gastroesophageal Reflux Disease, Hx Ulcer Musculoskeltal Medical History: Reports Hx Musculoskeletal Trauma Psychiatric Medical History: Reports: Hx Anxiety, Hx Bipolar Disorder, Hx Depression, Hx Post Traumatic Stress Disorder Past Surgical History: Reports: Hx Oral Surgery - [place] teeth, Other - Moles removed - Immunizations Immunizations up to date: Yes Hx Diphtheria, Pertussis, Tetanus Vaccination: Yes Doctor's Discharge - Discharge Referrals: NILAY MARIE DO [Primary Care Provider] - Follow up as needed
--- NOTE | 2018-07-16 01:37 | ER Document Report ---
HPI - HPI Time Seen by Provider: 07/15/18 22:40 Pain Level: 4 Notes: Patient is a 33-year-old female with no significant past medical history who presents to the emergency department complaining of bruising and pain at the site where her Nexplanon was placed about 10 hours ago. Patient states that she did have bleeding from the site initially which has since resolved. Patient states that her arm is very sore in that area and the pain does not radiate. Denies drug allergies. No other concerns or complaints. The Nexplanon was placed by [employer]. Denies any headache, fever, neck pain, URI, sore throat, chest pain, palpitations, syncope, cough, shortness of breath, wheeze, dyspnea, abdominal pain, nausea/vomiting/diarrhea, urinary retention, dysuria, hematuria, loss of control of bowel or bladder, numbness/tingling, muscle paralysis/weakness, or rash. - ROS Systems Reviewed and Negative: Yes All other systems reviewed and negative - REPRODUCTIVE Reproductive: DENIES: : Past Medical History - Social History Smoking Status: Never Smoker Family History: Reviewed & Not Pertinent - denies hx of cancers Pulmonary Medical History: Reports: Hx Asthma Renal/ Medical History: Denies: Hx Peritoneal Dialysis GI Medical History: Reports: Hx Gastroesophageal Reflux Disease, Hx Ulcer Musculoskeletal Medical History: Reports Hx Musculoskeletal Trauma Psychiatric Medical History: Reports: Hx Anxiety, Hx Bipolar Disorder, Hx Depression, Hx Post Traumatic Stress Disorder Past Surgical History: Reports: Hx Oral Surgery - [place] teeth, Other - Moles removed - Immunizations Immunizations up to date: Yes Hx Diphtheria, Pertussis, Tetanus Vaccination: Yes Vertical Provider Document - CONSTITUTIONAL Agree With Documented VS: Yes Notes: PHYSICAL EXAMINATION: GENERAL: Well-appearing, well-nourished and in no acute distress. LUNGS: Breath sounds clear to auscultation bilaterally and equal. No wheezes rales or rhonchi. HEART: Regular rate and rhythm without murmurs, rubs, gallops. Musculoskeletal: Left UE: FROM to passive/active. Strength 5+/5. N/V intact distal. No bony tenderness. Extremities: No cyanosis, clubbing, or edema b/l. Peripheral pulses 2+. Capillary refill less than 3 seconds. NEUROLOGICAL: Normal speech, normal gait. Normal sensory, motor exams PSYCH: Normal mood, normal affect. SKIN: left medial upper arm: there is mild bruising noted with a steri-strip in place where the nexplanon was inserted. There is no active bleeding. No hematoma or induration noted. No erythema, warmth, streaks, or purulence. Pt does have tenderness right at the nexplanon implant which is inserted superficially without free movement. There does not appear to be any edema or swelling otherwise to the upper extremity. N/V intact distal and brachial pulse is palpated deep to the medial arm and 2+. There is no other fluctuance appreciated. - INFECTION CONTROL TRAVEL OUTSIDE OF THE [place] IN LAST 30 DAYS: No Course - Re-evaluation Re-evalutation: 07/16/18 01:33 Patient is an afebrile, well-hydrated, 33-year-old female who presents to the ED with left arm pain s/p nexplanon implantation. Vitals are acceptable without any significant tachycardia, tachypnea, or hypoxia. PE is otherwise unremarkable for any neurovascular compromise, obvious tendon/ligament rupture, obvious fracture/dislocation, septic joint. Pt appears to be having a common complication from nexplanon insertion which includes pain and ecchymosis at the site. There is no evidence of active bleeding, hematoma, or infection. The implant is palpated, superficial, and w/o any free movement. Pt is N/V intact distal and there is no other areas of swelling. Patient is nontoxic-appearing. No labs or imaging warranted at this time based on H&P. Conservative measures otherwise for symptoms. Recheck with your PCM/OBGYN in 2-3 days, but she may call them tomorrow. Return to the ED with any worsening/concerning symptoms otherwise as reviewed in discharge. Patient is in agreement. - Vital Signs Vital signs: Temp Pulse Resp BP Pulse Ox 98.8 F 67 14 142/87 H 98 07/15/18 22:39 07/15/18 22:39 07/15/18 22:39 07/15/18 22:39 07/15/18 22:39 Discharge - Discharge Clinical Impression: Nexplanon in place, Left arm pain Condition: Stable Disposition: HOME, SELF-CARE Additional Instructions: Rest, Ice, light cool moist compression, Elevation Tylenol as needed Call OBGYN tomorrow. F/u with your PCP/OBGYN in 2-3 days for a recheck Return to the ED with any worsening symptoms and/or development of fever, headache, chest pain, palpitations, syncope, shortness of breath, trouble breathing, abdominal pain, n/v/d, muscle weakness/paralysis, numbness/tingling, swelling, redness, or other worsening symptoms that are concerning to you. Forms: Elevated Blood Pressure Referrals: [facility] [Provider Group] - Follow up as needed
[2018-07-16 02:00] VITALS: BP 152/97
== END 2018-07-16 02:00 | disposition home or self-care (01) ==
LOC: ER 22:34
DX: M79.622 Pain in left upper arm (principal); Z97.5 Presence of (intrauterine) contraceptive device; J45.909 Unspecified asthma, uncomplicated
CPT/HCPCS: 99283

== ENCOUNTER 2018-08-19 20:45 | Emergency (ER) | payer OTHER, MEDICAID ==
--- NOTE | 2018-08-20 01:35 | ER Document Report ---
ED Medical Screen (RME) - General Chief Complaint: Back Pain Stated Complaint: LOWER BACK PAIN Time Seen by Provider: 08/20/18 00:52 Primary Care Provider: MILENA VALENZUELA MD [Primary Care Provider] - Follow up as needed TRAVEL OUTSIDE OF THE [place] IN LAST 30 DAYS: No - Related Data Allergies/Adverse Reactions: No Known Allergies Allergy (Verified 03/14/18 12:44) Past Medical History Pulmonary Medical History: Reports: Hx Asthma Renal/ Medical History: Denies: Hx Peritoneal Dialysis GI Medical History: Reports: Hx Gastroesophageal Reflux Disease, Hx Ulcer Musculoskeltal Medical History: Reports Hx Musculoskeletal Trauma Psychiatric Medical History: Reports: Hx Anxiety, Hx Bipolar Disorder, Hx Depression, Hx Post Traumatic Stress Disorder Past Surgical History: Reports: Hx Oral Surgery - [place] teeth, Other - Moles removed - Immunizations Immunizations up to date: Yes Hx Diphtheria, Pertussis, Tetanus Vaccination: Yes Physical Exam - Vital signs Vitals: Temp Pulse Resp BP Pulse Ox 98.4 F 67 20 117/74 98 08/19/18 21:17 08/19/18 21:17 08/19/18 21:17 08/19/18 21:17 08/19/18 21:17 Course - Vital Signs Vital signs: Temp Pulse Resp BP Pulse Ox 98.4 F 67 20 117/74 98 08/19/18 21:17 08/19/18 21:17 08/19/18 21:17 08/19/18 21:17 08/19/18 21:17 Doctor's Discharge - Discharge Referrals: MILENA VALENZUELA MD [Primary Care Provider] - Follow up as needed
--- NOTE | 2018-08-20 01:56 | RADIOLOGY REPORT (SQ) ---
EXAM DESCRIPTION: XR THORACIC SPINE 2 VIEWS COMPLETED DATE/TME: 08/20/2018 01:13 CLINICAL HISTORY: 33 years, Female, low back pain s/p chiropractor manipulation COMPARISON: None. NUMBER OF VIEWS: 2 TECHNIQUE: 2 view thoracic spine LIMITATIONS: None. FINDINGS: Vertebral body height and alignment is preserved. The disc spaces are maintained IMPRESSION: Negative exam copyright 2010 [employer]- All Rights Reserved
[2018-08-20] MEDS ORDERED: LIDOCAINE 5% (700 MG) TRANSDERMAL ADH..PATCH TP ONE (02:06)
--- NOTE | 2018-08-20 02:06 | RADIOLOGY REPORT (SQ) ---
CLINICAL DATA: 33-year-old female with low back pain status post chiropractor manipulation TECHNICAL DATA: AP, both obliques, lateral and coned lateral x-ray view of the lumbosacral junction performed on 08/20/2018 at 1:33 AM. Comparison: None. FINDINGS: Five lumbar type vertebrae are identified. The vertebral body height and intervertebral disc space height are normal. The alignment is normal. There is irregularity of the proximal aspect of the right L1 transverse process which may be developmental in nature. A fracture is not entirely excluded. Otherwise, no acute fracture or subluxation is identified. There are no significant degenerative changes of the lumbar spine. The pedicles appear intact. Bone mineralization is normal. The sacroiliac joints are within normal limits. IMPRESSION: 1. Irregularity involving the proximal aspect of the right L1 transverse process on the frontal projection which may be developmental in nature. A fracture involving the right L1 transverse process is not entirely excluded. 2. Otherwise, normal routine lumbar spine series.
--- NOTE | 2018-08-20 02:14 | ER Document Report ---
HPI - HPI Time Seen by Provider: 08/20/18 00:52 Pain Level: 4 Notes: Patient is an otherwise healthy 33-year-old female presenting with chief complaint of low back pain. Patient reports that she is seen by a chiropractor for upper and mid back pain, states that ever since May she has been having chronic low back pain. She states that she saw her primary care provider and they wanted to "do x-rays on her" however she states they did not have the proper equipment. Patient is requesting x-rays. Patient is also requesting a workup for her high blood pressure. Patient's blood pressure today is normal. Patient denies any other symptoms to include nausea, vomiting, diarrhea, fevers. Patient has not had any bowel or bladder incontinence, urinary retention or saddle anesthesia. - REPRODUCTIVE Reproductive: DENIES: : Past Medical History - General Information source: Patient - Social History Smoking Status: Never Smoker Frequency of alcohol use: None Drug Abuse: None Family History: Reviewed & Not Pertinent - denies hx of cancers Pulmonary Medical History: Reports: Hx Asthma Renal/ Medical History: Denies: Hx Peritoneal Dialysis GI Medical History: Reports: Hx Gastroesophageal Reflux Disease, Hx Ulcer Musculoskeletal Medical History: Reports Hx Musculoskeletal Trauma Psychiatric Medical History: Reports: Hx Anxiety, Hx Bipolar Disorder, Hx Depression, Hx Post Traumatic Stress Disorder Past Surgical History: Reports: Hx Oral Surgery - [place] teeth, Other - Moles re moved - Immunizations Immunizations up to date: Yes Hx Diphtheria, Pertussis, Tetanus Vaccination: Yes Vertical Provider Document - CONSTITUTIONAL Notes: PHYSICAL EXAMINATION: GENERAL: Well-appearing, well-nourished and in no acute distress. HEAD: Atraumatic, normocephalic. EYES: Pupils equal round and reactive to light, extraocular movements intact, conjunctiva are normal. ENT: Nares patent, oropharynx clear without exudates. Moist mucous membranes. NECK: Normal range of motion, supple without lymphadenopathy LUNGS: Breath sounds clear to auscultation bilaterally and equal. No wheezes rales or rhonchi. HEART: Regular rate and rhythm without murmurs ABDOMEN: Soft, nontender, nondistended abdomen. No guarding, no rebound. No masses appreciated. Female : deferred Musculoskeletal: Normal range of motion, no pitting or edema. No cyanosis. Ten derness to palpation to right lumbar paraspinous area. NEUROLOGICAL: Cranial nerves grossly intact. Normal speech, normal gait. Normal sensory, motor exams PSYCH: Normal mood, normal affect. SKIN: Warm, Dry, normal turgor, no rashes or lesions noted. - INFECTION CONTROL TRAVEL OUTSIDE OF THE [place] IN LAST 30 DAYS: No Course - Re-evaluation Re-evalutation: X-ray shows an abnormality to the transverse process on the right side of L1. Radiology report states this could be congenital or a fracture. No acute fracture identified. Patient is in no acute distress and ambulates without difficulty. Patient instructed to not have any more chiropractor manipulations done until she sees her primary care provider and hopefully gets an MRI done to further determine what the abnormality is that is showing up on the x-ray. Patient verbalizes understanding and agreement with plan. - Vital Signs Vital signs: Temp Pulse Resp BP Pulse Ox 98.4 F 67 20 117/74 98 08/19/18 21:17 08/19/18 21:17 08/19/18 21:17 08/19/18 21:17 08/19/18 21:17 Discharge - Discharge Clinical Impression: Low back pain Qualifiers: Chronicity: chronic Back pain laterality: bilateral Sciatica presence: without sciatica Qualified Code(s): M54.5 - Low back pain Condition: Stable Disposition: HOME, SELF-CARE Additional Instructions: You have been seen in the Emergency Department (ED) today for back pain. Your workup and exam have there is an abnormality with 1 of the transverse processes on the right side at L1. This may be developmental or it could be a fracture. It is of the utmost importance that you take your radiology report back to your primary care provider and ask them to order an MRI. Please do not have any more manipulations done on your back until you have the MRI report to enter cleared by your primary care provider. Please continue to take [id number] pain medications as well as the muscle relaxers that your primary care provider prescribed. You should also purchase a local lidocaine cream such as "aspercreme with lidocaine" and use per bottle instructions to the affected area if the Lidoderm patches are not covered by your insurance. Apply heat to the area as often as you are able. Continue to keep active and avoid prolonged periods of bed rest. Please follow up with your doctor as soon as possible regarding today's ED visit and your back pain. Return to the ED for worsening back pain, fever, weakness or numbness of either leg, or if you develop either (1) an inability to urinate or have bowel movements, or (2) loss of your ability to control your bathroom functions (if you start having "accidents"), or if you develop other new symptoms that concern you.concern you. Prescriptions: Lidocaine [Lidoderm 5% (700 mg) Transdermal Patch] 1 patch TP DAILY #30 adh..patch Forms: Return to Work Referrals: MILENA VALENZUELA MD [Primary Care Provider] - Follow up as needed
[2018-08-20 02:41] VITALS: BP 149/91
== END 2018-08-20 02:45 | disposition home or self-care (01) ==
LOC: ER 20:45
DX: G89.29 Other chronic pain (principal); M54.5 Low back pain; M54.6 Pain in thoracic spine
CPT/HCPCS: 72070; 72110; 99283

== ENCOUNTER 2018-11-16 09:10 | Day surgery (SDC) | payer MEDICAID, OTHER ==
--- NOTE | 2018-11-13 22:34 | EKG REPORT ---
SEVERITY:- NORMAL ECG - SINUS RHYTHM : Confirmed by: Laura Boswell MD 13-Nov-2018 22:34:05
[~2018-11-16 09:10] MED LIST: CEFAZOLIN 2 GM/D5W RTU 2 GM/50 ML RTUPB IV PRN
[2018-11-16] MEDS ORDERED: MIDAZOLAM 2 MG/2 ML INJ ONE (11:24)
[2018-11-16] MEDS ORDERED: FENTANYL CITRATE INJ/PF 250 MCG/5 ML AMPULE ONE (11:24)
[2018-11-16] MEDS ORDERED: ONDANSETRON HCL INJ/PF 4 MG/2 ML SDV ONE (11:24)
[2018-11-16] MEDS ORDERED: DEXAMETHASONE SOD PHOS INJ 10 MG/1 ML VIAL ONE (11:24)
[2018-11-16] MEDS ORDERED: LIDOCAINE 2% INJ-PF (20 MG/ML) 10 ML AMPUL ONE (11:24)
[2018-11-16] MEDS ORDERED: NEOSTIGMINE METHYLSULFATE 10 MG/10 ML VIAL ONE (11:24)
[2018-11-16] MEDS ORDERED: GLYCOPYRROLATE INJ 0.4 MG/2 ML VIAL ONE (11:25)
[2018-11-16] MEDS ORDERED: PROPOFOL INJ 200 MG/20 ML VIAL IV ONE (11:25)
[2018-11-16] MEDS ORDERED: MINERAL OIL (STERILE) 10 ML VIAL ONE (11:26)
[2018-11-16] MEDS ORDERED: BACITRACIN ZINC OINTMENT 15 GM ONE (11:26)
[2018-11-16] MEDS ORDERED: BUPIVACAINE HCL 0.5%/EPI 1:200000 INJ 1.8 ML CARTRIDGE ONE ×2 (11:26→12:25)
[2018-11-16] MEDS ORDERED: TOBRAMYCIN SULFATE/DEXAMETH OPH OINTMENT 3.5 GM ONE (11:27)
[2018-11-16] MEDS ORDERED: BALANCED SALT IRRIG SOLN COMB2 15 ML BOTTLE ONE (11:27)
[2018-11-16] MEDS ORDERED: ROCURONIUM BROMIDE INJ 50 MG/5 ML VIAL IV ONE (11:32)
[2018-11-16] MEDS: OXYMETAZOLINE HCL 0.05% NASAL SPRAY 15 ML BOTTLE ONE ×2 (12:26→13:10)
[2018-11-16] MEDS: BUPIVACAINE HCL 0.5%-EPI 1:200000 INJ/PF 30 ML VIAL ONE ×3 (12:30→12:55)
[2018-11-16] MEDS ORDERED: OXYCODONE-ACETAMINOPHEN 5-325 MG TABLET ONE (16:27)
== END 2018-11-16 17:33 | disposition home or self-care (01) ==
LOC: SC 09:10
PROVIDERS: ATTEND Otolaryngology
DX: H25.12 Age-related nuclear cataract, left eye (principal); I10 Essential (primary) hypertension; Z79.899 Other long term (current) drug therapy
CPT/HCPCS: 66984; 93005; 93010; 00160; J2250; J3490 ×8; J3010; J2710; J2405; J2704; J1100; J0690; 160

== ENCOUNTER 2018-12-08 18:04 | Emergency (ER) | payer MEDICAID ==
[2018-12-08] MEDS ORDERED: KETOROLAC TROMETHAMINE 60 MG/2 ML SDV IM ONE (18:54)
--- NOTE | 2018-12-08 19:01 | ER Document Report ---
ED Medical Screen (RME) - General Chief Complaint: Hip Pain Stated Complaint: HIP PAIN Time Seen by Provider: 12/08/18 18:26 Primary Care Provider: MILENA VALENZUELA MD [Primary Care Provider] - Follow up as needed Mode of Arrival: Wheelchair Information source: Patient Notes: Patient is a 33-year-old female presenting to the emergency department with chief complaint of right hip pain. Patient denies any direct trauma to the area. She does report a history of a fracture to the transverse process in her lumbar spine. She states that this has caused her to have continued low back pain improve off her gait. Exam: Tenderness with flexion of the right lower extremity. I have greeted and performed a rapid initial assessment of this patient. A comprehensive ED assessment and evaluation of the patient, analysis of test results and completion of the medical decision making process will be conducted by additional ED providers. I have specifically instructed the patient or family members with the patient to immediately return to any nursing staff should anything change in the patient's condition or with their chief complaint. This medical record was dictated with voice recognizing software. There may be grammatical, syntax errors that are unintended. TRAVEL OUTSIDE OF THE [place] IN LAST 30 DAYS: No - Related Data Allergies/Adverse Reactions: No Known Allergies Allergy (Verified 03/14/18 12:44) Past Medical History - Social History Frequency of alcohol use: 3 days a week Drug Abuse: None - Past Medical History Cardiac Medical History: Reports: Hx Hypertension - no meds-SMOKER Denies: Hx Heart Attack Pulmonary Medical History: Denies: Hx Asthma Neurological Medical History: Denies: Hx Cerebrovascular Accident, Hx Seizures Renal/ Medical History: Denies: Hx Peritoneal Dialysis GI Medical History: Reports: Hx Gastroesophageal Reflux Disease, Hx Ulcer - stomach. Denies: Hx Hepatitis, Hx Hiatal Hernia Musculoskeltal Medical History: Reports Hx Arthritis - L hip, Reports Hx Musculoskeletal Trauma Psychiatric Medical History: Reports: Hx Anxiety, Hx Bipolar Disorder, Hx Depression, Hx Post Traumatic Stress Disorder Infectious Medical History: Denies: Hx Hepatitis Past Surgical History: Reports: Hx Oral Surgery - [place] teeth, Other - Moles removed. Denies: Hx Mastectomy, Hx Open Heart Surgery, Hx Pacemaker - Immunizations Immunizations up to date: Yes Hx Diphtheria, Pertussis, Tetanus Vaccination: Yes Physical Exam - Vital signs Vitals: Temp Pulse Resp BP Pulse Ox 98.2 F 95 16 135/89 H 97 12/08/18 18:12 12/08/18 18:12 12/08/18 18:12 12/08/18 18:12 12/08/18 18:12 Course - Vital Signs Vital signs: Temp Pulse Resp BP Pulse Ox 98.2 F 95 16 135/89 H 97 12/08/18 18:12 12/08/18 18:12 12/08/18 18:12 12/08/18 18:12 12/08/18 18:12 Doctor's Discharge - Discharge Referrals: MILENA VALENZUELA MD [Primary Care Provider] - Follow up as needed
--- NOTE | 2018-12-08 19:45 | RADIOLOGY REPORT (SQ) ---
EXAM DESCRIPTION: HIP RIGHT AP/LATERAL COMPLETED DATE/TIME: 12/08/2018 7:18 pm REASON FOR STUDY: right hip pain COMPARISON: None. NUMBER OF VIEWS: Two views. TECHNIQUE: AP pelvis and additional frog-leg view of the right hip. LIMITATIONS: None. FINDINGS: MINERALIZATION: Normal. RIGHT HIP: No fracture or dislocation. No worrisome bone lesions. LEFT HIP: No fracture or dislocation. No worrisome bone lesions. PUBIS AND ISCHIUM: No fracture. PELVIS: No fracture. SACRUM: No fracture or dislocation. No worrisome bone lesions. LOWER LUMBAR SPINE: No fracture or dislocation. No worrisome bone lesions. No significant disc disea se. SOFT TISSUES: No findings. OTHER: No other significant finding. IMPRESSION: NEGATIVE STUDY OF THE RIGHT HIP. NO RADIOGRAPHIC EVIDENCE OF ACUTE INJURY. TECHNICAL DOCUMENTATION: JOB ID: [id number] [email or web address]- All Rights Reserved Reading location - IP/workstation name: [email or web address]
--- NOTE | 2018-12-08 19:55 | ER Document Report ---
ED General - General Chief Complaint: Hip Pain Stated Complaint: HIP PAIN Time Seen by Provider: 12/08/18 18:26 Primary Care Provider: MILENA VALENZUELA MD [Primary Care Provider] - Follow up as needed Mode of Arrival: Wheelchair TRAVEL OUTSIDE OF THE [place] IN LAST 30 DAYS: No - HPI Patient complains to provider of: Right hip pain Notes: Right hip pain 8/10 tearing in nature without radiation nothing makes it better or worse. Patient believes she overdid it at work the other day. Denies any other direct trauma to her right hip. - Related Data Allergies/Adverse Reactions: No Known Allergies Allergy (Verified 03/14/18 12:44) Past Medical History - General Information source: Patient - Social History Smoking Status: Current Every Day Smoker Frequency of alcohol use: 3 days a week Drug Abuse: None Family History: Reviewed & Not Pertinent - denies hx of cancers Patient has suicidal ideation: No Patient has homicidal ideation: No - Past Medical History Cardiac Medical History: Reports: Hx Hypertension - no meds-SMOKER Denies: Hx Heart Attack Pulmonary Medical History: Denies: Hx Asthma Neurological Medical History: Denies: Hx Cerebrovascular Accident, Hx Seizures Renal/ Medical History: Denies: Hx Peritoneal Dialysis GI Medical History: Reports: Hx Gastroesophageal Reflux Disease, Hx Ulcer - stomach. Denies: Hx Hepatitis, Hx Hiatal Hernia Musculoskeletal Medical History: Reports Hx Arthritis - L hip, Reports Hx Musculoskeletal Trauma Psychiatric Medical History: Reports: Hx Anxiety, Hx Bipolar Disorder, Hx Depression, Hx Post Traumatic Stress Disorder Infectious Medical History: Denies: Hx Hepatitis Past Surgical History: Reports: Hx Oral Surgery - [place] teeth, Other - Moles removed. Denies: Hx Mastectomy, Hx Open Heart Surgery, Hx Pacemaker - Immunizations Immunizations up to date: Yes Hx Diphtheria, Pertussis, Tetanus Vaccination: Yes Review of Systems - Review of Systems Notes: REVIEW OF SYSTEMS: CONSTITUTIONAL: -fevers, -chills EENT: -eye pain, -difficulty swallowing, -nasal congestion CARDIOVASCULAR: -chest pain, -syncope. RESPIRATORY: -cough, -SOB GASTROINTESTINAL: -abdominal pain, -nausea, -vomiting, -diarrhea GENITOURINARY: -dysuria, -hematuria MUSCULOSKELETAL: -back pain, -neck pain SKIN: -rash or skin lesions. HEMATOLOGIC: -easy bruising or bleeding. LYMPHATIC: -swollen, enlarged glands. NEUROLOGICAL: -altered mental status or loss of consciousness, -headache, - neurologic symptoms PSYCHIATRIC: -anxiety, -depression. ALL OTHER SYSTEMS REVIEWED AND NEGATIVE. Physical Exam - Vital signs Vitals: Temp Pulse Resp BP Pulse Ox 98.2 F 95 16 135/89 H 97 12/08/18 18:12 12/08/18 18:12 12/08/18 18:12 12/08/18 18:12 12/08/18 18:12 - Notes Notes: PHYSICAL EXAMINATION: GENERAL: Well-appearing, well-nourished and in no acute distress. HEAD: Atraumatic, normocephalic. EYES: Pupils equal round and reactive to light, extraocular movements intact, sclera anicteric, conjunctiva are normal. ENT: nares patent, oropharynx clear without exudates. Moist mucous membranes. NECK: Normal range of motion, supple without lymphadenopathy LUNGS: Breath sounds clear to auscultation bilaterally and equal. No wheezes rales or rhonchi. HEART: Regular rate and rhythm without murmurs ABDOMEN: Soft, nontender, normoactive bowel sounds. No guarding, no rebound. No masses appreciated. EXTREMITIES: Normal range of motion, no pitting or edema. No cyanosis. Mild pain over palpation of right inguinal canal, no identifiable masses She has no difficulty ambulating NEUROLOGICAL: Cranial nerves grossly intact. Normal speech, normal gait. Normal sensory and motor exams. PSYCH: Normal mood, normal affect. SKIN: Warm, Dry, normal turgor, no rashes or lesions noted. Course - Re-evaluation Re-evalutation: 12/08/18 20:08 Well-appearing 33-year-old female presents with mild right hip pain. Patient overdid it at work. Advanced imaging studies unremarkable for acute bony abnormality. Reassuring physical exam. Patient will be kept out of work for 2 days Given strict return precautions if anything should change please return. Follow-up with PCP in the meantime - Vital Signs Vital signs: Temp Pulse Resp BP Pulse Ox 98.2 F 95 16 135/89 H 97 12/08/18 18:12 12/08/18 18:12 12/08/18 18:12 12/08/18 18:12 12/08/18 18:12 Discharge - Discharge Clinical Impression: Hip pain Qualifiers: Laterality: right Qualified Code(s): M25.551 - Pain in right hip Condition: Stable Disposition: HOME, SELF-CARE Instructions: Arthralgia ([facility]) Additional Instructions: Your PCP Forms: Return to Work Referrals: MILENA VALENZUELA MD [Primary Care Provider] - Follow up as needed
[2018-12-08 20:42] VITALS: BP 130/88
== END 2018-12-08 20:41 | disposition home or self-care (01) ==
LOC: ER 18:04
DX: M25.551 Pain in right hip (principal); F17.200 Nicotine dependence, unspecified, uncomplicated; I10 Essential (primary) hypertension
CPT/HCPCS: 99283; 96374; 73502; J1885

== ENCOUNTER 2019-08-28 18:21 | Emergency (ER) | payer SELFPAY ==
--- NOTE | 2019-08-28 18:33 | ER Document Report ---
HPI - HPI Time Seen by Provider: 08/28/19 18:24 Context: Patient is a 34-year-old female who presents emergency department for COVID-19 testing. 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 About a week and half ago, patient had a fever, diarrhea, and other symptoms, but states that she has been symptom-free. Patient states that she feels well. States that she just needs a test so she can go back to work. The outpatient respiratory clinic for cocaine testing is not open at this time. Patient denies any fever, body aches, chills, chest pain, or any other symptoms. - ROS Systems Reviewed and Negative: Yes All other systems reviewed and negative - CONSTITUTIONAL Constitutional: DENIES: Fever, Chills - EENT EENT: DENIES: Sore Throat, Ear Pain, Nasal Drainage-Clear - CARDIOVASCULAR Cardiovascular: DENIES: Chest pain - RESPIRATORY Respiratory: DENIES: Trouble Breathing, Coughing - GASTROINTESTINAL Gastrointestinal: DENIES: Abdominal Pain, Nausea, Patient vomiting - REPRODUCTIVE Reproductive: DENIES: : - DERM Skin Color: Normal Skin Problems: None Past Medical History - General Information source: Patient - Social History Smoking Status: Unknown if Ever Smoked Family History: Reviewed & Not Pertinent - denies hx of cancers - Past Medical History Cardiac Medical History: Reports: Hx Hypertension - no meds-SMOKER Denies: Hx Heart Attack Pulmonary Medical History: Denies: Hx Asthma Neurological Medical History: Denies: Hx Cerebrovascular Accident, Hx Seizures Renal/ Medical History: Denies: Hx Peritoneal Dialysis GI Medical History: Reports: Hx Gastroesophageal Reflux Disease, Hx Ulcer - stomach. Denies: Hx Hepatitis, Hx Hiatal Hernia Musculoskeletal Medical History: Reports Hx Arthritis - L hip, Reports Hx Muscu loskeletal Trauma Psychiatric Medical History: Reports: Hx Anxiety, Hx Bipolar Disorder, Hx Depression, Hx Post Traumatic Stress Disorder Infectious Medical History: Denies: Hx Hepatitis Past Surgical History: Reports: Hx Oral Surgery - Street teeth, Other - Moles removed. Denies: Hx Mastectomy, Hx Open Heart Surgery, Hx Pacemaker - Immunizations Immunizations up to date: Yes Hx Diphtheria, Pertussis, Tetanus Vaccination: Yes Vertical Provider Document - CONSTITUTIONAL Exam Limitations: No Limitations General Appearance: No Apparent Distress - INFECTION CONTROL TRAVEL OUTSIDE OF THE [place] IN LAST 30 DAYS: No - HEENT HEENT: Atraumatic, Normocephalic, PERRLA - NECK Neck: Normal Inspection - RESPIRATORY Respiratory: No Respiratory Distress - MUSCULOSKELETAL/EXTREMETIES Musculoskeletal/Extremeties: FROM - NEURO Level of Consciousness: Awake, Alert, Appropriate Motor/Sensory: No Motor Deficit Course - Re-evaluation Re-evalutation: 08/28/19 Patient will be tested for COVID 19. She will be called with the results. Maintain social distancing and assessed patient from afar. Follow-up precautions were given. Patient is stable for discharge. Discharge - Discharge Clinical Impression: Encounter for laboratory testing for COVID-19 virus Condition: Stable Disposition: HOME, SELF-CARE Additional Instructions: You were tested for COVID-19 here in emergency department. Please self quarantine until your results are back, or for 2 weeks if you test positive. Take Tylenol if needed for fever. Follow-up with your primary care provider as needed. Referrals: MILENA VALENZUELA MD [Primary Care Provider] - Follow up as needed
== END 2019-08-28 18:52 | disposition home or self-care (01) ==
LOC: ER 18:21
DX: Z03.818 Encounter for observation for suspected exposure to other biological agents ruled out (principal); I10 Essential (primary) hypertension
CPT/HCPCS: 87635; 99283